=== PATIENT | female | born 1940 | race Caucasian/White ===

== ENCOUNTER 2017-01-13 19:57 | Emergency (ER) | payer MEDICARE, BC ==
[2017-01-13 20:55] LABS: HEMATOCRIT 32.9 % (36.0-48.0); HEMOGLOBIN 10.7 g/dL (12-16); MCH 29.7 pg (26.0-34.0); MCHC 32.5 g/dL (31.0-37.0); MCV 91.4 fL (80.0-100.0); MEAN PLATELET VOLUME 9.8 fL (7.4-10.4); PLATELET COUNT 208 10x3/uL (130-400); RDW 17.2 % (11.5-14.5); WBC 31.5 10x3/uL (4.8-10.8)
[2017-01-13 21:31] LABS: ALBUMIN 2.2 g/dL (3.4-5.0); BILIRUBIN - TOTAL 0.47 mg/dL (0.2-1.3); CALCIUM 8.1 mg/dL (8.5-10.1); CARBON DIOXIDE 21.2 mmol/L (21.0-32.0); CREATININE - SERUM 1.5 mg/dL (0.6-1.3); POTASSIUM - SERUM 4.2 mmol/L (3.5-5.1); PROTEIN - SERUM 5.6 g/dL (6.4-8.2)
[2017-01-13 21:38] LABS: EOSINOPHILS 3 % (0-7); LYMPHOCYTES 7 % (15-50); MONOCYTES 3 % (2-11); NEUTROPHILS 87 % (40-80); PLATELET ESTIMATE NORMAL
[2017-01-13 21:46] LABS: TROPONIN-I 0.13 ng/mL (0.000-0.060)
[2017-01-13 22:35] LABS: APPEARANCE CLEAR (CLEAR); BILIRUBIN NEGATIVE (NEGATIVE); COLOR YELLOW (YELLOW); GLUCOSE NEGATIVE (NEGATIVE); KETONE NEGATIVE (NEGATIVE); NITRITE POSITIVE (NEGATIVE); PROTEIN TRACE mg/dL (NEGATIVE); UROBILINOGEN NORMAL (NORMAL)
[2017-01-13 22:36] LABS: BACTERIA MANY /hpf (NONE SEEN); EPITHELIAL CELLS 0-5 /hpf (0-5); RED CELLS - URINE 0-5 /hpf (0-5); WHITE CELLS - URINE 25-50 /hpf (0-5)
[2017-01-13] MEDS ORDERED: PROTONIX40 MG PO (23:24)
[2017-01-13] MEDS ORDERED: ALDACTONE25 MG PO (23:24)
[2017-01-13] MEDS ORDERED: ZOFRAN4 MG PO (23:25)
[2017-01-13] MEDS ORDERED: DETROL LA4 MG PO (23:25)
[2017-01-13] MEDS ORDERED: NEURONTIN 300300 MG PO (23:25)
== END 2017-01-13 23:55 | disposition left against medical advice (07) ==
LOC: D.ER 19:57 → D.M2 22:22 → D.ER 23:55
PROVIDERS: Family Medicine
DX: I21.4 Non-ST elevation (NSTEMI) myocardial infarction (principal); D72.829 Elevated white blood cell count, unspecified